=== PATIENT | female | born 2000 | race American Indian/Alaskan Native ===

== ENCOUNTER 2021-08-11 16:39 | Emergency (ER) | payer OTHER ==
[2021-08-11 19:08] VITALS: BP 128/48
[2021-08-11] MEDS ORDERED: diphenhydrAMINE 25 MG CAP PO ONE (19:33)
[2021-08-11] MEDS ORDERED: predniSONE 20 MG TAB PO ONE (19:33)
[2021-08-11] MEDS ORDERED: FAMOTIDINE 20 MG TAB PO ONE (19:33)
--- NOTE | 2021-08-11 19:36 | Emergency Department Report ---
- General Chief complaint: Skin Rash Stated complaint: RASH Time Seen by Provider: 08/11/21 19:13 Source: patient Mode of arrival: Ambulatory Limitations: No Limitations - History of Present Illness Initial comments: 20-year-old black female with no past medical history presents to the emergency department for evaluation of 2-week history of worsening full body rash. She states that rash started out on right arm and got progressively worse over the past few weeks. She states that she rash is not painful but very itchy. She states that she has not had fever or any pain. She states that she put [id number] cortisone cream to the areas without improvement. No one else at the house has same rash. She states that she has recently changed her detergent. complaint: rash -: Gradual, week(s) (2) Location: generalized Severity: moderate Severity scale (0 -10): 0 Consistency: constant Associated symptoms: denies other symptoms Treatments Prior to Arrival: OTC topical medication, Benadryl - Related Data Previous Rx's Medication Instructions Recorded Last Taken Type hydrOXYzine PAMOATE [Vistaril] 25 mg PO Q6HR PRN #21 capsule 08/11/21 Unknown Rx prednisoLONE [Millipred 5mg (6 day 5 mg PO QDAY #1 pack 08/11/21 Unknown Rx 21 tab dosepak)] Allergies Allergy/AdvReac Type Severity Reaction Status Date / Time No Known Allergies Allergy Verified 08/11/21 19:04 Abscess Boil HPI - HPI Chief Complaint: Skin Rash Stated Complaint: RASH Time Seen by Provider: 08/11/21 19:13 Home Medications: Previous Rx's Medication Instructions Recorded Last Taken Type hydrOXYzine PAMOATE [Vistaril] 25 mg PO Q6HR PRN #21 capsule 08/11/21 Unknown Rx prednisoLONE [Millipred 5mg (6 day 5 mg PO QDAY #1 pack 08/11/21 Unknown Rx 21 tab dosepak)] Allergies/Adverse Reactions: Allergies Allergy/AdvReac Type Severity Reaction Status Date / Time No Known Allergies Allergy Verified 08/11/21 19:04 ED Review of Systems ROS: Stated complaint: RASH Other details as noted in HPI Comment: All other systems reviewed and negative Constitutional: denies: chills, diaphoresis, fever, malaise, weakness Eyes: denies: eye pain, eye discharge ENT: denies: ear pain, throat pain, dental pain Respiratory: denies: cough, orthopnea, shortness of breath, SOB with exertion, SOB at rest Cardiovascular: denies: chest pain, palpitations, dyspnea on exertion, orthopnea, edema, syncope, paroxysmal nocturnal dyspnea Endocrine: no symptoms reported Gastrointestinal: denies: abdominal pain, nausea, vomiting, diarrhea, constipation, hematemesis, hematochezia Genitourinary: denies: urgency, dysuria, frequency Musculoskeletal: denies: back pain Skin: rash, pruritus. denies: lesions, change in color, change in hair/nails Neurological: denies: headache, weakness Psychiatric: denies: anxiety, depression Hematological/Lymphatic: denies: easy bleeding, easy bruising ED Past Medical Hx - Medications Home Medications: Home Medications Medication Instructions Recorded Confirmed Last Taken Type hydrOXYzine PAMOATE [Vistaril] 25 mg PO Q6HR PRN #21 capsule 08/11/21 Unknown Rx prednisoLONE [Millipred 5mg (6 day 5 mg PO QDAY #1 pack 08/11/21 Unknown Rx 21 tab dosepak)] ED Physical Exam - General Limitations: No Limitations General appearance: alert, in no apparent distress - Head Head exam: Present: atraumatic, normocephalic - Eye Eye exam: Present: normal appearance. Absent: conjunctival injection - Neck Neck exam: Present: normal inspection. Absent: lymphadenopathy - Respiratory Respiratory exam: Absent: respiratory distress - Cardiovascular Cardiovascular Exam: Present: regular rate - GI/Abdominal GI/Abdominal exam: Absent: soft, distended - Extremities Exam Extremities exam: Present: normal inspection, full ROM - Back Exam Back exam: Present: normal inspection - Neurological Exam Neurological exam: Present: alert, oriented X3 - Psychiatric Psychiatric exam: Present: normal affect, normal mood - Skin Skin exam: Present: warm, dry, rash (Full body) ED Course Vital Signs 08/11/21 08/11/21 19:05 20:12 Temperature 98 F Pulse Rate 95 H 81 Respiratory 16 17 Rate Blood Pressure 128/48 [Left] O2 Sat by Pulse 95 100 Oximetry ED Medical Decision Making - Medical Decision Making 20-year-old black female with no past medical history presents to the emergency department for evaluation of 2-week history of worsening full body rash. She states that rash started out on right arm and got progressively worse over the past few weeks. She states that she rash is not painful but very itchy. She states that she has not had fever or any pain. She states that she put ov [id number] cortisone cream to the areas without improvement. No one else at the house has same rash. She states that she has recently changed her detergent. Patient noted to have rash over 4 body. Rash consistent with contact dermatitis. Patient will be treated with steroids and antihistamines in the ER and at home. She was advised to take medications as prescribed and follow-up with dermatology for further evaluation. She was advised to return to the ER for any concerning symptoms. She verbalized understanding of and agreement with plan of care. Critical care attestation.: If time is entered above; I have spent that time in minutes in the direct care of this critically ill patient, excluding procedure time. ED Disposition Clinical Impression: Contact dermatitis Qualifiers: Contact dermatitis type: unspecified Contact dermatitis trigger: unspecified trigger Qualified Code(s): L25.9 - Unspecified contact dermatitis, unspecified cause Disposition: 01 HOME / SELF CARE / HOMELESS Is pt being admited?: No Does the pt Need Aspirin: No Condition: Stable Instructions: Contact Dermatitis, [id number] Additional Instructions: Take medications as prescribed. Follow-up with dermatology. Prescriptions: prednisoLONE [Millipred 5mg (6 day 21 tab dosepak)] 5 mg PO QDAY #1 pack hydrOXYzine PAMOATE [Vistaril] 25 mg PO Q6HR PRN #21 capsule PRN Reason: Itching Referrals: ANNIE CURRY MD [Referring] - 3-5 Days Time of Disposition: 19:36
== END 2021-08-11 20:00 | disposition home or self-care (01) ==
LOC: ED 16:39
DX: L25.9 Unspecified contact dermatitis, unspecified cause (principal)
CPT/HCPCS: 99282